=== PATIENT | female | born 1945 | race Caucasian/White ===

== ENCOUNTER 2018-11-15 06:53 | Inpatient (IN) ==
[2018-11-09 15:12] LABS: Basophils # (Auto) 0 K/mcL (0.0-0.3); Basophils % (Auto) 0.5 % (0.0-2.0); Eosinophils # (Auto) 0.3 K/mcL (0.0-0.7); Eosinophils % (Auto) 4.4 % (0.0-7.0); Granulocytes % (Auto) 57.2 % (38.0-78.0); Hematocrit 40.3 % (36.0-48.0); Hemoglobin 13.1 g/dL (12.0-15.0); Lymphocytes # (Auto) 1.9 K/mcL (1.5-4.8); Mean Cell Volume 94.1 fL (80.0-100.0); Mean Corpuscular HGB Conc 32.5 g/dL (31.0-36.0); Mean Platelet Volume 8.6 fL (7.4-10.4); Monocytes # (Auto) 0.6 K/mcL (0.1-0.9); Monocytes % (Auto) 8.9 % (1.0-12.0); Platelet Count 224 K/mcL (140-440); RBC 4.28 M/mcL (4.00-5.20); Red Cell Distribution Width 12.7 % (11.5-14.5); WBC 6.6 K/mcL (4.5-11.0)
[2018-11-09 15:21] LABS: Blood Urea Nitrogen 18 mg/dl (8-23); Calcium 9.5 mg/dl (8.6-10.4); Carbon Dioxide 24 mmol/L (22-30); Chloride 101 mmol/L (96-108); Glomerular Filtration Rate 55; Glucose 69 mg/dL (70-105); Potassium 4.5 mmol/L (3.3-5.1); Sodium 137 mmol/L (133-145)
[2018-11-09 15:24] LABS: Appearance,Urine CLEAR; Bilirubin,Urine NEG (NEG); Color,Urine YELLOW; Culture Indicated,Urine NO; Glucose,Urine (UA) NEGATIVE (NEG); Ketones,Urine NEG (NEG); Leukocyte Esterase,Urine NEG /uL (NEG); Nitrate,Urine NEG (NEG); Protein,Urine NEG (NEG); Specific Gravity,Urine 1.014 (1.000-1.035); Urine Blood NEG mg/dL (<0.03); Urobilinogen,Urine NEG (NEG)
[2018-11-09 15:41] LABS: INR 1.2 (0.9-1.1); Prothrombin Time 14.9 sec (11.9-14.5)
[~2018-11-15 06:53] MED LIST: 0.9 % SODIUM CHLORIDE 9 ML, KETOROLAC 30 MG, ROPIVACAINE HCL/PF 49.5 ML, EPINEPHrine 0.... IJ SCH; ACETAMINOPHEN 500 MG TABLET PO SCH; CELECOXIB 200 MG CAPSULE PO SCH; PREGABALIN 75 MG CAPSULE PO SCH; ceFAZolin 2 GM in DEXTROSE 5% IN WATER 50 ML IV SCH; oxyCODONE 10 MG TAB.ER.12H PO SCH
[2018-11-15] MEDS ORDERED: GABAPENTIN 300 MG CAPSULE PO SCH (07:30)
[2018-11-15] MEDS ORDERED: LIDOCAINE HCL/PF 100 MG/5 ML SYRINGE IV ONE (09:40)
[2018-11-15] MEDS ORDERED: GLYCOPYRROLATE 0.2 MG/ML VIAL IV ONE (09:40)
[2018-11-15] MEDS ORDERED: ONDANSETRON 4 MG/2 ML VIAL IV ONE (09:40)
[2018-11-15] MEDS ORDERED: MIDAZOLAM 5 MG/5 ML VIAL IV ONE (09:40)
[2018-11-15] MEDS ORDERED: TRANEXAMIC ACID 1,000 MG/10 ML VIAL IV ONE (09:40)
[2018-11-15] MEDS ORDERED: fentaNYL 250 MCG/5 ML VIAL IV ONE (09:40)
[2018-11-15] MEDS ORDERED: ROPIVACAINE HCL/PF 20 ML VIAL IJ ONE (09:40)
[2018-11-15] MEDS ORDERED: DEXAMETHASONE 10 MG/ML VIAL IV ONE (09:40)
[2018-11-15] MEDS ORDERED: PROPOFOL 200 MG/20 ML VIAL IV ONE (09:40)
[2018-11-15] MEDS ORDERED: LACTATED RINGERS 250 ML IV PRN (10:57)
[2018-11-15] MEDS ORDERED: PROMETHAZINE 25 MG/ML VIAL IV PRN (10:57)
[2018-11-15] MEDS ORDERED: diphenhydrAMINE 50 MG/ML VIAL IV PRN (10:57)
[2018-11-15] MEDS ORDERED: NALOXONE HCL 0.4 MG/ML VIAL IV PRN ×2 (10:57→13:34)
[2018-11-15] MEDS ORDERED: HYDROmorphone 2 MG/ML VIAL IV PRN ×2 (10:57→11:01)
[2018-11-15] MEDS ORDERED: fentaNYL 100 MCG/2 ML VIAL IV PRN (10:57)
[2018-11-15] MEDS ORDERED: FLUMAZENIL 0.1 MG/ML ML IV PRN (10:57)
[2018-11-15] MEDS ORDERED: MEPERIDINE 25 MG/ML SYRINGE IV PRN (10:57)
[2018-11-15] MEDS ORDERED: IPRATROPIUM/ALBUTEROL 3 ML AMPUL.NEB NEB PRN (10:57)
[2018-11-15] MEDS ORDERED: ONDANSETRON 4 MG/2 ML VIAL IV PRN ×2 (10:57→11:01)
[2018-11-15] MEDS ORDERED: LACTATED RINGERS 1,000 ML IV SCH (11:00)
--- NOTE | 2018-11-15 11:00 | Brief Operative Note ---
Date of procedure: 11/15/18 Pre-op diagnosis: Right knee djd severe Post-op diagnosis: same Procedure: right robotic tka Grafts/Implants: Yes Anesthesia: GEORGINAA Surgeon: Julien Tijerina Fountain Attendant: Tomer Yoo Estimated blood loss (cc): 20 Tourniquet Time (Minutes): 45 Specimens Removed/Pathology: none sent Condition: stable Disposition: PACU
[2018-11-15] MEDS ORDERED: ACETAMINOPHEN 325 MG TABLET PO PRN (11:01)
[2018-11-15] MEDS ORDERED: TRANEXAMIC ACID 1,000 MG/10 ML VIAL IV SCH (11:01)
[2018-11-15] MEDS ORDERED: BENZOCAINE/MENTHOL 1 LOZENGE PO PRN (11:01)
[2018-11-15] MEDS ORDERED: BISACODYL 10 MG SUPP.RECT PR PRN (11:01)
[2018-11-15] MEDS ORDERED: MAGNESIUM HYDROXIDE 30 ML ORAL.SUSP PO PRN (11:01)
[2018-11-15] MEDS ORDERED: POLYETHYLENE GLYCOL 3350 17 GM PACKET PO PRN (11:01)
[2018-11-15] MEDS ORDERED: FLEETS ADULT ENEMA PR PRN (11:01)
[2018-11-15] MEDS ORDERED: oxyCODONE/APAP 5/325MG TABLET PO PRN (11:01)
[2018-11-15] MEDS ORDERED: GENTAMICIN SULFATE 800 MG/20 ML VIAL IR ONE (11:04)
[2018-11-15] MEDS ORDERED: FEXOFENADINE 180 MG TABLET PO PRN (11:04)
[2018-11-15] MEDS ORDERED: DEXTROSE 5%-1/2NS 1,000 ML IV SCH (11:15)
--- NOTE | 2018-11-15 11:35 | Operative Note ---
DATE OF OPERATION: 11/15/2018 PREOPERATIVE DIAGNOSIS: Right knee degenerative arthritis with valgus malalignment, severe. POSTOPERATIVE DIAGNOSIS: Right knee degenerative arthritis with valgus malalignment, severe. PROCEDURE: Robotic right total knee arthroplasty using Bison components. SURGEON: Julien Tijerina MD EXTRUSION MACHINE OPERATOR: Tomer Yoo PA-C. The PA's assistance was required for the safe and efficient completion of the entire case. This provider's expertise and technical skill were required throughout the case. The PA assisted with preoperative coordination, intraoperative retraction, wound closure, dressing and splint application, as well as postoperative documentation and care coordination. ANESTHESIA: General LMA anesthesia. COMPLICATIONS: None. TOTAL TOURNIQUET TIME: 45 minutes. IMPLANTS: Size see nurse's note. This did consist of a 10 mm poly insert for a size 4 tibial baseplate, size 4 femur and a 33 mm patellar button. All components were cemented with antibiotic cement. DESCRIPTION OF PROCEDURE: The patient was brought to the operating room and put to sleep with general LMA anesthesia. We had a timeout and confirmed the operative site. Once done, we then placed two pins above and below the knee, registered the center of hip rotation and intra-articular pins were registered, medial and lateral malleolus and 30 points on the femur and tibia were registered. Once the registration was complete, we then removed the remnants of the meniscus. Inspecting the joint showed severe arthritis of the lateral compartment with 3-4 degrees of valgus malalignment. At this point, we adjusted the implants to match her anatomy and to make the knee straight and stable. We then brought in the robot, made the bony cuts and then balanced the knee. The size 4 poly with a 10 mm thick deep dish was perfectly rebalancing her knee. We irrigated thoroughly and then cemented into place a size 4 tibial baseplate, size 4 femur and size 4 polyethylene with 10 mm thick deep dish. We also placed a 33 mm patellar button. She measured 22 mm in total thickness. This was cut to 13 mm and the 9 mm thick poly restored her anatomy perfectly. Once all was cemented into place, we allowed the knee to dry in slight flexion. Once cement was completely dry, we then took the knee through range of motion confirming alignment of the leg and the patella. We closed the mid vastus approach with #1 Stratafix. The skin was closed with Stratafix and adhesive closure. The patient tolerated this well. Tourniquet deflated at 45 minutes. RBH:singh Job ID: [id number] Doc ID: [id number] Julien Tijerina MD
--- NOTE | 2018-11-15 12:16 | XRay Report ---
CLINICAL INFORMATION: Post-Op Total Knee COMPARISON: None. FINDINGS: Total knee prostheses is anatomically aligned. No osseous abnormality. Soft tissue swelling seen as expected. IMPRESSION: Negative Interpreted and Authenticated by: Lamont Gimenez 11/15/18
[2018-11-15] MEDS ORDERED: NALOXONE HCL 0.4 MG/ML VIAL ONE (13:36)
[2018-11-15] MEDS: KETOROLAC 15 MG/ML VIAL IV SCH ×2 (13:50→18:04)
[2018-11-15] MEDS: 0.45 % SODIUM CHLORIDE 1,000 ML IV SCH ×2 (13:52→22:50)
[2018-11-15] MEDS: ceFAZolin 1 GM VIAL IV SCH (17:33)
[2018-11-15] MEDS: 0.9 % SODIUM CHLORIDE 10 ML SYRINGE IV SCH ×2 (17:34→21:55)
[2018-11-15] MEDS ORDERED: BACLOFEN 10 MG TABLET PO SCH (21:00)
[2018-11-15] MEDS ORDERED: SENNOSIDES 1 TABLET PO SCH (21:00)
[2018-11-15] MEDS ORDERED: TEMAZEPAM 15 MG CAPSULE PO PRN (21:00)
[2018-11-15] MEDS: OXYBUTYNIN CHLORIDE 5 MG TABLET PO SCH (21:51)
[2018-11-15] MEDS: ASPIRIN 325 MG ENTERIC COATED TABLET PO SCH (21:51)
[2018-11-15] MEDS: DOCUSATE SODIUM 100 MG CAPSULE PO SCH (21:51)
[2018-11-15] MEDS: GABAPENTIN 300 MG CAPSULE PO SCH (21:52)
[2018-11-16] MEDS: ceFAZolin 1 GM VIAL IV SCH (01:17)
[2018-11-16] MEDS: KETOROLAC 15 MG/ML VIAL IV SCH ×2 (01:17→05:09)
[2018-11-16] MEDS: 0.9 % SODIUM CHLORIDE 10 ML SYRINGE IV SCH (05:09)
--- NOTE | 2018-11-16 07:33 | Orthopedic Progress Note ---
Subjective Patient information: Note initiated : 11/16/18 at 7:31 am Service Date, if different from initiated Date: [] Patient: Tamara Pantoja a 72 y/o F admitted on 11/15/18 for Right DANIEL Uni Medial vs. Total Knee Arthroplasty. Chief Complaint: [Pt is stable this morning on post operative day 1 without any significant concerns or complaints. Patients vital signs have remained stable. Patients dressing is dry and is grossly intact from a neurovascular and motor standpoint. Patients 10 point ROS is otherwise negative. ] Objective Vital signs: Vital Signs Temp Pulse Pulse Resp BP Pulse Ox 11/16/18 06:57 97.8 F 61 16 133/75 96 11/16/18 05:16 97 11/16/18 05:15 98.3 F 59 L 16 142/75 97 11/16/18 01:00 98 F 60 16 135/69 92 11/15/18 22:01 98 F 61 61 12 148/74 95 11/15/18 21:00 92 11/15/18 16:35 73 8 L 143/89 97 11/15/18 16:00 66 10 L 141/81 97 11/15/18 15:35 67 8 L 136/77 97 11/15/18 15:01 96 11/15/18 14:35 70 10 L 136/72 96 11/15/18 14:05 71 8 L 140/76 96 11/15/18 13:35 67 10 L 140/77 96 11/15/18 13:20 72 7 L 134/80 95 11/15/18 13:05 72 10 L 138/81 95 11/15/18 12:50 76 8 L 145/76 95 11/15/18 12:45 14 95 11/15/18 12:35 74 10 L 154/78 95 11/15/18 12:20 97.7 F 79 17 166/75 98 11/15/18 12:05 98.4 F 78 9 L 173/70 99 11/15/18 11:50 97.3 F 70 7 L 125/101 100 11/15/18 11:35 97.7 F 77 6 L 163/78 100 11/15/18 11:30 78 7 L 159/84 100 11/15/18 11:25 76 8 L 143/78 100 11/15/18 11:21 97.3 F 89 10 L 148/74 100 Intake and Output 11/15/18 11/16/18 11/16/18 21:59 05:59 13:59 Intake Total 400 1697 Output Total 550 1300 Balance -150 397 Intake: IV 897 Sodium Chloride 0.45% 1,000 ml 897 @ 100 mls/hr IV .Q10H MINA Rx#: [id number] Oral 400 800 Output: Urine Catheter Amount 550 Void Amount 1300 Other: Urine Appearance Clear Urine Color Bright Yellow Weight 144 lb 6.4 oz Intake & Output: Intake & Output 11/15/18 11/16/18 11/16/18 21:59 05:59 13:59 Intake Total 400 1697 Output Total 550 1300 Balance -150 397 Weight 144 lb 6.4 oz Intake: IV 897 Sodium Chloride 0.45% 1,000 ml 897 @ 100 mls/hr IV .Q10H MINA Rx#: [id number] Oral 400 800 Output: Urine Catheter Amount 550 Void Amount 1300 Other: Urine Appearance Clear Urine Color Bright Yellow Incision: Yes healing Incision clean and dry: Yes Dressing: Yes clean Weight bearing status: full Neurological exam IM: Yes motor sensory intact, Yes neurovascular intact Extremities exam IM: Yes Foot pink and warm, Yes neurovascular intact - Labs CBC & BMP: 11/09/18 13:52 11/09/18 13:52 Labs: Orthopedic Labs 11/09/18 13:52 PT 14.9 H INR 1.2 H APTT 33 11/09/18 13:52 Hgb 13.1 Hct 40.3 Assessment and Plan (1) Hx of total knee arthroplasty The patient has been educated regarding dressing care, Physical Therapy recommendations, home exercises, restrictions, and follow up appointments. The patient has had all necessary DME prescribed. The patient has remained relatively stable during their hospital course. Status: Acute (2) Hx of total knee arthroplasty Status: Acute
--- NOTE | 2018-11-16 07:36 | Discharge Summary ---
Ortho Discharge - TKA - Patient Instructions Diet: Regular Diet Activity: activity as tolerated, weight bearing as tolerated Total Knee Protocol: For Total Knee: Start ROM VALERIA with stationary bike or rocking chair. Work on gaining full extension of knee. Posterior dislocation precautions provided. Hip abductor strengthening and gait training instructions provided. Apply Cryocuff as instructed. Dressing Care: May shower in 2 days - Problem Maintenance (1) Hx of total knee arthroplasty Status: Acute (2) Hx of total knee arthroplasty Status: Acute - Follow Up Plan Follow Up Appointments: Julien Tijerina MD [Physician] - 11/30/18 9:20 am Disposition: Home, Self-Care Prognosis: Good Rehab Potential: Good I certify that the patient requires SNF services: No Overall status at discharge: patient is progressing back to baseline - Orders For Discharge Prescriptions: Aspirin [Ecotrin] 325 mg PO BID #60 tab.ec Docusate Sodium [Colace] 100 mg PO BID #60 cap oxyCODONE/APAP [Percocet 5-325 mg] 1 - 2 tab PO Q4HP PRN #75 tab PRN Reason: Pain Level 3-6
[2018-11-16] MEDS: 0.45 % SODIUM CHLORIDE 1,000 ML IV SCH (07:59)
[2018-11-16] MEDS ORDERED: CYANOCOBALAMIN 1,000 MCG/ML VIAL IM SCH (09:00)
[2018-11-16] MEDS ORDERED: AZELASTINE HCL NAS SCH (09:00)
[2018-11-16] MEDS ORDERED: FLUoxetine HCL 20 MG CAPSULE PO SCH (09:00)
[2018-11-16] MEDS ORDERED: VITAMIN E (DL,TOCOPHERYL ACET) 400 UNIT CAPSULE PO SCH (09:00)
[2018-11-16] MEDS ORDERED: VITAMIN D3 1,000 UNIT TABLET PO SCH (09:00)
[2018-11-16] MEDS ORDERED: MAGNESIUM OXIDE 400 MG TABLET PO SCH (09:00)
[2018-11-16] MEDS: DOCUSATE SODIUM 100 MG CAPSULE PO SCH (09:06)
[2018-11-16] MEDS: OXYBUTYNIN CHLORIDE 5 MG TABLET PO SCH (09:06)
[2018-11-16] MEDS: ASPIRIN 325 MG ENTERIC COATED TABLET PO SCH (09:07)
[2018-11-16] MEDS: GABAPENTIN 300 MG CAPSULE PO SCH (09:07)
== END 2018-11-16 12:40 | disposition home or self-care (01) | DRG 470 ==
LOC: SUR 06:53 → MEDSUR 12:35
PROVIDERS: ADMIT Orthopaedic Surgery; ATTEND Orthopaedic Surgery